=== PATIENT | female | born 1945 | race Caucasian/White ===

== ENCOUNTER → 2023-09-27 14:03 | Outpatient (REF) | payer OTHER, SELFPAY | LOC: WDC 14:03 | PROVIDERS: ATTENDING PHYSICIAN Family Medicine | DX: Z12.31 Encounter for screening mammogram for malignant neoplasm of breast (principal) | CPT/HCPCS: 77063; 77067 ==

== ENCOUNTER → 2023-10-11 11:01 | Outpatient (REF) | payer OTHER, SELFPAY | LOC: RAD 11:01 | PROVIDERS: ATTENDING PHYSICIAN Surgery Vascular Surgery; FAMILY PHYSICIAN Family Medicine | DX: I65.23 Occlusion and stenosis of bilateral carotid arteries (principal) | CPT/HCPCS: 93880 ==

== ENCOUNTER → 2024-10-08 13:36 | Outpatient (REF) | payer OTHER, SELFPAY | LOC: WDC 13:36 | PROVIDERS: ATTENDING PHYSICIAN Obstetrics & Gynecology Gynecology; FAMILY PHYSICIAN Family Medicine | DX: Z12.31 Encounter for screening mammogram for malignant neoplasm of breast (principal) | CPT/HCPCS: 77063; 77067 ==